=== PATIENT | female | born 1950 | race Caucasian/White ===

== ENCOUNTER → 2023-03-08 | Outpatient (CLI) | payer MEDICARE, SELFPAY ==
--- NOTE | 2023-03-07 | IMM_PTH ---
PATIENT: STEFANY GILMORE LOC: [facility] U#:[id number] AGE/SX: 73/F ROOM: RE03/08/[address]: LINNEA KRAUS MD : 1950 BED: DIS: 03/08/2023 SPEC #: [id number] RECD: 03/09/23 13:45 STATUS: ZEESHAN REMacho #: [id number] SUNSHINE: 03/07/23 00:[address]: LINNEA KRAUS DEPT: IMMUNOHISTOCHEMISTRY RECD BY: Kortney Ibarra Tissues: Palate, NOS Procedures: P53 (add) Vimentin (add) MELAN-A (add) S100 (initial) CD68 (ADD) PHYSICIAN & INSTITUTION [place] [address] SPECIMEN INFORMATION: Tissue Source: Right palatine tissue lesion Clinical Info: Black-blue pigment lingual/palatal to large filling Specimen Number: [id number] CPT code: 61339, 76721 x4 METHODOLOGY: Deparaffinized sections of prefer/formalin-fixed tissue or PAP/DQ stained slides are incubated with monoclonal/polyclonal antibodies/oligonucleotide probes. Localization is made via biotin free immunoperoxidase method. Appropriate controls are performed and reacted as expected. Results on target cell population are indicated in the following table: RESULTS: ANTIBODY / CLONE RESULT S-100 (4C4.9) negative Melan A (A103) negative Vimentin (V9) positive CD68 (KP-1) negative P53 (DO-7) negative These tests were developed and their performance characteristics determined by [facility]. They may not have been cleared or approved by the [place] Food and Drug Administration. The FDA has determined that such clearance or approval is not necessary. The above immunohistochemical/dualISH markers are ordered and reviewed by the Pathologist. INTERPRETATION: Right palatine tissue lesion, biopsy: No evidence of malignancy. AM:jaja 03/10/2023
--- NOTE | 2023-03-07 13:30 | TISS_PTH ---
PATIENT: STEFANY GILMORE LOC: [facility] U#:[id number] AGE/SX: 73/F ROOM: RE03/08/[address]: LINNEA KRAUS MD : 1950 BED: DIS: 03/08/2023 SPEC #: [id number] RECD: 03/08/23 10:06 STATUS: ZEESHAN JULISSA #: [id number] SUNSHINE: 03/07/23 13:[address]: LINNEA KRAUS DEPT: SURGICAL PATHOLOGY RECD BY: Jackeline Fischer Tissues: Palate, NOS Procedures: Surgery Specimen Level IV HEADER OPERATION: Incisional biopsy of palatal tissue of #3 PRE-OP DIAGNOSIS: Black-blue pigment lingual/palatal to large filling; likely gum tattoo TISSUE SUBMITTED: Right palatal tissue adjacent to #3 MICROSCOPIC DIAGNOSIS Right palatine tissue lesion, biopsy: Hyperkeratosis and mild acanthosis. Focal mucosal denudation. Extraneous black pigment. No evidence of malignancy. See comment. AM:jaja 03/09/2023 COMMENT Immunohistochemistry ([id number]) supports the above diagnosis. Case has been reviewed in consultation with Dr. Hercules who concurs with the above diagnosis. IDC:[id number] MICROSCOPIC DESCRIPTION Slides are reviewed. GROSS DESCRIPTION Received in fixative is one container labeled with the patient's name and designated upper right palate. The specimen consists of a piece of arreguin mucosal tissue measuring 0.6 x 0.5 x 0.2 cm. The specimen is inked, bisected and submitted entirely in one cassette. / SJ:jaja 03/08/2023 TC:3 CPT: 65100
== END | disposition home or self-care (01) ==
LOC: LABSPEC 11:03
PROVIDERS: Referring Provider Dentist Oral and Maxillofacial Surgery; Visit Provider Dentist Oral and Maxillofacial Surgery
DX: K13.70 Unspecified lesions of oral mucosa (principal)
CPT/HCPCS: 88305; 88341; 88342